=== PATIENT | female | born 1995 | race Caucasian/White ===

== ENCOUNTER 2019-11-02 10:22 | Day surgery (SDC) | payer BC, OTHER, SELFPAY ==
[2019-11-01 12:17] VITALS: BMI 28.6
[2019-11-02] VITALS (9 sets, daily range): BP systolic 117–134; BP diastolic 78–91; PULSE 69–99; RESP 15–20; TEMP 36.1–36.4; O2SAT 94–100
[2019-11-02 11:12] LABS: OR HCG Qualitative Urine Negative (Negative)
[2019-11-02] MEDS: sodium chloride 0.9% 1,000 ML 30 ML IV (11:16)
--- NOTE | 2019-11-02 11:21 | ANES.PREANE2 ---
Pre-Anesthetic Assessment Pre-Anesthetic Assessment: Height/Weight: Height 1.63 m Weight 75.75 kg Preop Diagnosis: cholelithiasis Proposed Procedure: Operation Date: 11/02/19 12:00 Proposed Procedures p Laparoscopic Cholecystectomy/possible open 38958 K80.20(Not Applicable) - Sergey Trejo MD Familial anesthetic complications: PONV upon awakening from anesthesia - will give reglan, famotidine, bicitra before surgery and will place scopolamine Was Beta Tiffanie taken within 24 hours: N/A Last intake: Intake Last Liquid Date 11/01/19 Last Liquid Time 23:30 Last Solid Date 11/01/19 Last Solid Time 11:00 Social: Social History: No alcohol and No tobacco Exam: Pre-Anes Outpt Exam: alert, oriented x 3, clear to auscultation bilaterally and regular rate & rhythm Airway: Cervical ROM: WNL MP: 2 Dentition: Full Anesthetic Plan: ASA status: 1 Anesthesia: General Risk of > 500 ml blood loss (7ml/kg in children): No Meds/Allergies Current Medications: Current Medications Generic Name Dose Route Start Last Admin Trade Name Freq PRN Reason Stop Dose Admin Sodium Chloride 1,000 mls @ 30 ml s/hr 11/02/19 10:45 11/02/19 11:16 Sodium Chloride 0.9% IV 11/03/19 10:44 30 mls/hr .Q24H CARLYLE Administration PFSH Anesthesia PFSH: Medical History Cholelithiasis Surgical History H/O adenoidectomy H/O oral surgery History of tonsillectomy Family History Father Cancer lymphoma Other CAD (coronary artery disease) Denies family history of Diabetes Anesthesia complication Bleeding disorder Social History Smoking and tobacco status: never smoked Alcohol intake: never Household members: spouse Marital status: Current 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
[2019-11-02] MEDS: famotidine 20 mg/2 mL INJ IVP (11:28)
[2019-11-02] MEDS: scopolamine 1.5 Patch 1 PATCH TRANSDERMA (11:29)
[2019-11-02] MEDS: citric acid-sodium citrate 30 mL UDC PO (11:39)
--- NOTE | 2019-11-02 12:08 | W.PM.OPSUD ---
Surgery/Procedure H&P Update DATE OF PROCEDURE: November 02, 2019 DATE H&P PERFORMED: 10/31/19 H&P UPDATE INFORMATION: I have reviewed H&P completed within last 30 days, I have examined patient prior to procedure and No changes to prior documentation PREOP DIAGNOSIS: cholelithiasis PLANNED PROCEDURE: Operation Date: 11/02/19 12:00 Proposed Procedures p Laparoscopic Cholecystectomy/possible open 19758 K80.20(Not Applicable) - Sergey Trejo MD
[2019-11-02] MEDS: ondansetron 2 mg/ML SDV 2 mL 4 MG IVP (14:36)
--- NOTE | 2019-11-02 15:16 | PM.OP ---
Operative Report Date of procedure: November 02, 2019 Pre-op Diagnosis: cholelithiasis Post-op diagnosis: same Procedure Done: Laparoscopic cholecystectomy Pathology: Gallbladder Surgeon: Sergey Trejo Anesthesia: General Estimated blood loss (mL): 5 Condition: stable Disposition: PACU Procedure: The patient was taken to the operating room and was intubated under general anesthesia. After the antibiotic had been administered, the abdomen was prepped and draped in a sterile manner. Using a #15 blade, a 1 centimeter infraumbilical curvilinear incision was made and using an open Vini technique the peritoneal cavity was entered. A 10 millimeter port was placed and 15 millimeters of pneumoperitoneum was created. A 10 millimeter, 30 degrees scope was then introduced. Three 5 millimeter ports were placed in the epigastric, midclavicular and the anterior axillary line two fingerbreadths below the costal margin on the right side under the direct visualization. Ratcheted forceps were introduced into the lateral most port and was used to retract the fundus of the gallbladder cephalad and using forceps the infundibulum of the gallbladder was retracted laterally. Using L-hook cautery the peritoneum overlying the Calot's triangle was opened medially and laterally until the cystic duct and the cystic artery were skeletonized. Dissection was carried along the body of the gallbladder and after ensuring critical view of safety, 4 clips applied on the cystic duct and 3 clips applied on the cystic artery and cut leaving, 3 clips on the remaining portion of the duct and 2 clips on the remaining portion of the artery. The rest of the gallbladder was dissected off the liver using L-hook cautery. There was no bleeding or bile leaking noted from the gallbladder fossa and the clips appeared to be in place. An EndoCatch bag was introduced to remove the gallbladder. All the ports were removed under direct visualization and there was no bleeding noted from the port sites. The fascia of the umbilicus was closed using [id number] 0 Vicryl sutures and the subcutaneous tissue was approximated using 3-0 Vicryl sutures. The skin at all four ports were closed using 4-0 Monocryl and Dermabond. A total of 10 millimeters of 0.5% Marcaine was infiltrated around the port sites. The patient was stable throughout the procedure.
== END 2019-11-02 15:45 | disposition home or self-care (01) ==
PROVIDERS: Anesthesiology; PCP Family Medicine; Visit Provider Surgery
PROC: 0FT44ZZ Resection of Gallbladder, Percutaneous Endoscopic Approach (ICD-10-PCS; CPT 47562; principal; 2019-11-02 12:00)
DX: K80.10 Calculus of gallbladder with chronic cholecystitis without obstruction (principal)
CPT/HCPCS: 47562; 12345; 81025; 84703; 88304; 96365; 96374; J0690; J1100; J1200; J2001; J2405; J2704; J2710; J3010; J3490; J7030

== ENCOUNTER → 2019-12-26 13:47 | Outpatient (BNVA) | payer BC, OTHER, SELFPAY | PROVIDERS: PCP Family Medicine; Visit Provider Obstetrics & Gynecology | DX: Z72.51 High risk heterosexual behavior (principal) | CPT/HCPCS: 81025 ==

== ENCOUNTER → 2020-01-30 13:09 | Outpatient (BNVA) | payer BC, OTHER, SELFPAY | PROVIDERS: PCP Family Medicine; Visit Provider Obstetrics & Gynecology | DX: Z32.01 Encounter for pregnancy test, result positive (principal) | CPT/HCPCS: 81025 ==

== ENCOUNTER → 2020-03-16 09:43 | Outpatient (BNVA) | payer BC, OTHER, SELFPAY | PROVIDERS: PCP Family Medicine; Visit Provider Obstetrics & Gynecology | DX: Z34.90 Encounter for supervision of normal pregnancy, unspecified, unspecified trimester (principal) | CPT/HCPCS: 80053; 80307; 80500; 85027; 86592; 86762; 86803; 86850; 86870; 86900; 86902; 87077; 87086; 87184; 87340 ==

== ENCOUNTER → 2020-03-26 14:43 | Outpatient (BNVA) | payer BC, OTHER, SELFPAY | PROVIDERS: PCP Family Medicine; Visit Provider Obstetrics & Gynecology | DX: Z34.90 Encounter for supervision of normal pregnancy, unspecified, unspecified trimester (principal); R51.9 Headache, unspecified | CPT/HCPCS: 84315; 86850; 86870; 86886; 86900 ==

== ENCOUNTER → 2020-04-18 09:27 | Outpatient (BNVA) | payer BC, OTHER, SELFPAY | PROVIDERS: PCP Family Medicine; Visit Provider Nurse Practitioner Women's Health | DX: O99.891 Other specified diseases and conditions complicating pregnancy (principal); O36.0990 Maternal care for other rhesus isoimmunization, unspecified trimester, not applicable or unspecified; R82.71 Bacteriuria | CPT/HCPCS: 84315; 86850; 86886; 86900 ==

== ENCOUNTER → 2020-05-22 10:22 | Outpatient (BNVA) | payer BC, SELFPAY | PROVIDERS: PCP Family Medicine; Visit Provider Obstetrics & Gynecology | DX: O99.891 Other specified diseases and conditions complicating pregnancy (principal); R82.71 Bacteriuria; O36.0990 Maternal care for other rhesus isoimmunization, unspecified trimester, not applicable or unspecified | CPT/HCPCS: 84315; 86850; 86870; 86886; 87086 ==

== ENCOUNTER → 2020-06-26 10:20 | Outpatient (BNVA) | payer BC, SELFPAY | PROVIDERS: PCP Family Medicine; Visit Provider Obstetrics & Gynecology | DX: O36.0990 Maternal care for other rhesus isoimmunization, unspecified trimester, not applicable or unspecified (principal); O36.0920 Maternal care for other rhesus isoimmunization, second trimester, not applicable or unspecified; O99.891 Other specified diseases and conditions complicating pregnancy; R82.71 Bacteriuria; O09.292 Supervision of pregnancy with other poor reproductive or obstetric history, second trimester; Z3A.25 25 weeks gestation of pregnancy | CPT/HCPCS: 84315; 86850; 86870; 86886 ==

== ENCOUNTER → 2020-07-24 13:48 | Outpatient (BNVA) | payer BC, SELFPAY | PROVIDERS: PCP Family Medicine; Visit Provider Obstetrics & Gynecology | DX: Z34.80 Encounter for supervision of other normal pregnancy, unspecified trimester (principal); R82.71 Bacteriuria | CPT/HCPCS: 82950; 84315; 85027; 86850; 86870; 86886 ==

== ENCOUNTER → 2020-08-07 12:05 | Outpatient (BNVA) | payer BC, SELFPAY | PROVIDERS: PCP Family Medicine; Visit Provider Obstetrics & Gynecology | DX: O99.891 Other specified diseases and conditions complicating pregnancy (principal); R82.71 Bacteriuria; O99.013 Anemia complicating pregnancy, third trimester; O36.0990 Maternal care for other rhesus isoimmunization, unspecified trimester, not applicable or unspecified; O36.8190 Decreased fetal movements, unspecified trimester, not applicable or unspecified | CPT/HCPCS: 84315; 87086 ==

== ENCOUNTER 2020-08-16 02:50 | Outpatient (CLI) | payer BC, SELFPAY ==
[2020-08-16] VITALS (9 sets, daily range): BP systolic 103–121; BP diastolic 71–77; PULSE 103–123; RESP 16–18; TEMP 35.6–36.4; O2SAT 99; BMI 31.6
[2020-08-16 03:59] LABS: Nitrazine Paper, PH Negative
--- NOTE | 2020-08-16 05:14 | PC.NURSE ---
Escorted to ER via wheelchair
--- NOTE | 2020-08-16 05:25 | PC.NURSE ---
After discharge patient escorted to ER via wheelchair. Checked in at ER registration and then taken via wheelchair to ER16.
== END 2020-08-16 05:20 | disposition home or self-care (01) ==
LOC: OPOB 03:00 → OBGYN 03:01
PROVIDERS: PCP Family Medicine; Visit Provider Obstetrics & Gynecology
DX: O21.9 Vomiting of pregnancy, unspecified (principal); Z3A.00 Weeks of gestation of pregnancy not specified; R51.9 Headache, unspecified; H53.9 Unspecified visual disturbance; R10.9 Unspecified abdominal pain
CPT/HCPCS: 59025; 83986; 99211

== ENCOUNTER 2020-08-16 05:30 | Emergency (ER) | payer BC, SELFPAY ==
[2020-08-16 05:36] VITALS: BP 117/85; PULSE 112; RESP 16; TEMP 36.8; O2SAT 98; BMI 31.6
[2020-08-16 05:48] VITALS: BP 113/81; PULSE 138; RESP 14; O2SAT 96
[2020-08-16] MEDS: sodium chloride 0.9% 1,000 ML 999 ML IV ×2 (06:08→06:38)
[2020-08-16 06:15] VITALS: BP 108/85; RESP 15; O2SAT 99
[2020-08-16 06:33] LABS: Anion Gap 12.5 (5-19); Blood Urea Nitrogen 4 mg/dL (6-20); Calcium 8.2 mg/dL (8.5-10.5); Carbon Dioxide 26 mmol/L (22-29); Chloride 101 mmol/L (98-107); Glomerular Filtration Rate 152.9 mL/min (90-130); Glucose 94 mg/dL (65-115); Osmolality Calculated 279 mOsm/kg (285-295); Potassium 3.5 mmol/L (3.5-5.1); Sodium 136 mmol/L (136-145)
--- NOTE | 2020-08-16 06:33 | W.ED.NAVMDI ---
HPI - Nausea/Vomiting/Diarrhea General: Chief complaint: Abdominal Pain Stated complaint: n/v, headache Time Seen by Provider: 08/16/20 05:42 History of Present Illness: HPI Narrative: 33-year-old female presents emergency room from the OB department, she is at 32 weeks. She was seen there at around 2 AM with persistent nausea and vomiting also complained of contractions. Per her report they are monitor her first time checked her cervix is no reported cervical change and she does not have any contractions. She did have a couple episodes where she vomited a few flecks of blood but otherwise has been just vomiting watery and bilious vomit. She has previously had a cholecystectomy. She denies any vaginal discharge she denies any dysuria urgency or frequency. She stated they checked a urine in the OB department however there is no record of a urinalysis in the EMR. She is allergic to Reglan and has not been using anything besides Unisom as an antiemetic at home. She states her nausea is pretty much resolved at this point. MD elicited complaint: nausea and vomiting Pertinent past history: other (Current , at 32 weeks gestation. No complications with previous ) Onset (ago): hour(s) Description of vomiting: watery and bilious Associated nausea: Yes Associated abdominal pain: No Exacerbating factors: none Relieving factors: none Associated symtoms: Reports anorexia and nausea; Denies altered mental status, anxiety, bloating, change in vision, chest pain, cough, diaphoresis, decreased urine output, dizziness, dysuria, epistaxis, fatigue, fecal incontinence, fevers/chills, headache(s), malaise, myalgias, numbness, palpitations, rash, short of breath, syncope, tenesmus, tinnitus or weakness Review of Systems Const: Denies: fatigue, malaise or diaphoresis Eyes: Denies: change in vision ENMT: Denies: tinnitus or epistaxis Card: Denies: chest pain, palpitations or syncope Resp: Denies: dyspnea, productive cough or non-productive cough GI: Reports: nausea; Denies: bloating or fecal incontinence : Denies: flank pain, difficulty voiding, dysuria, urinary frequency or urinary urgency Skin/Breast: Denies: rash or pruritus Neuro: Denies: headache(s) or dizziness Psych: Denies: anxiety PFSH ED PFSH: Medical History (Updated 08/16/20 @ 07:22 by Carroll Sanchez DO) No pertinent past medical history Denies diabetes, asthma, seizures, hypertension, DVT/PE , genital herpes. Denies partner herpes history. PCP: Dr. Thomas Surgical History S/P tonsillectomy and adenoidectomy In 2010 Status post laparoscopic cholecystectomy (11/02/19) 11/02/[address] Trejo at [facility] – [place] Family History Father Lymphoma Family/Other Breast cancer maternal great grandmother, diagnosed in her 70s Bone cancer maternal great grandmother Denies family history of Colon cancer Ovarian cancer Diabetes Heart disease Hyperlipidemia Anesthesia complication Bleeding disorder Hypertension Uterine cancer Thyroid condition Stroke Social History Smoking and tobacco status: never smoked Alcohol intake: never Marital status: Female Reproductive History: Date of last menstrual period: 11/01/19 : 2 Physical Exam Const: COMMON NORMALS: no acute distress EXAM LIMITATIONS: no altered mental status GENERAL APPEARANCE: cooperative and comfortable ORIENTATION/CONSCIOUSNESS: Yes awake, Yes oriented to person, Yes oriented to place and Yes oriented to time HENMT: COMMON NORMALS: normocephalic, atraumatic and hearing grossly normal bilaterally HEAD & SCALP: normocephalic and atraumatic Neck/C-Spine: COMMON NORMALS: no JVD Resp: COMMON NORMALS: normal respiratory effort, No retractions, No use of accessory muscles and clear to auscultation bilaterally AUSCULTATION: clear to auscultation bilaterally Cardio: COMMON NORMALS: no JVD, regular rate, regular rhythm and No murmurs present (Cardio) RATE: regular rate RHYTHM: regular rhythm GI: COMMON NORMALS: Soft to palpation and No hepatosplenomegaly present AUSCULTATION: Yes normoactive bowel sounds PALPATION: Yes Soft to palpation, No Tenderness to palpation present (GI), No Guarding due to palpation present (GI) and Yes No hepatosplenomegaly present OTHER: Gravid abdomen consistent with stated 32 weeks gestational age Extremity: COMMON NORMALS: normal to inspection, capillary refill normal, no clubbing, cyanosis or edema, no calf tenderness and no pedal edema Neuro: SENSORIUM/ORIENTATION: Yes oriented to person, Yes oriented to place and Yes oriented to time Skin: COMMON NORMALS: no rashes or lesions noted GENERAL SKIN EXAM: no rashes or lesions noted Course Vital Signs: Vital signs: Vital Signs Temperature 98.2 F 08/16/20 05:36 Pulse Rate 109 H 08/16/20 07:28 Respiratory Rate 16 08/16/20 06:38 Blood Pressure 108/72 08/16/20 07:28 Pulse Oximetry 98 08/16/20 07:28 MDM - Nausea/Vomiting/Diarrhea MDM Narrative: Medical decision making narrative: Improved with fluids. Encourage clear liquid diet for the rest today then advance as tolerated promethazine given as needed keep next appointment with Dr. Rogel as planned return if has further problems. Lab Data: Labs: Lab Results 08/16/20 08/16/20 Range/Units 06:02 06:36 Sodium 136 (136-145) mmol/L Potassium 3.5 (3.5-5.1) mmol/L Chloride 101 (98-107) mmol/L Carbon Dioxide 26 (22-29) mmol/L Anion Gap 12.5 (5-19) BUN 4 L (6-20) mg/dL Creatinine 0.5 (0.5-0.9) mg/dL GFR Calculation 152.9 H (90-130) mL/min Glucose 94 (65-115) mg/dL Calculated Osmolal ity 279 L (285-295) mOsm/k g Calcium 8.2 L (8.5-10.5) mg/dL Urine Color Yellow (Yellow) Urine Appearance Cloudy (CLEAR) Urine pH 7 (5-7) Ur Specific Gravit y 1.010 (1.005-1.030) Urine Protein Neg (Negative) Urine Glucose (UA) Norm (Normal) Urine Ketones 3+ H (Negative) Urine Blood Neg (Negative) Urine Nitrate Negative (Negative) Urine Bilirubin 1+ H (Negative) Urine Urobilinogen 1 H (Negative) mg/dL Ur Leukocyte Gisselle ase Negative (Negative) Urine RBC None (0-2) /hpf Urine WBC 0-4 H (0-5) /hpf Ur Squamous Epith Cells 10-15 H (0-5) /hpf Amorphous Sediment Not Reportable Urine Bacteria 1+ H (NONE) /hpf Urine Mucus 2+ /hpf Discharge Plan Discharge Patient Disposition: Home Clinical Impression: Hyperemesis gravidarum Condition: Stable Prescriptions: New promethazine 25 mg tablet 25 mg PO QID PRN (Reason: nausea and vomiting) Qty: 20 RF: 0 No Action prenat.vits,harsha,juj-[id number] Tablet 1 tab PO DAILY RF: 0 calcium carbonate [Tums Extra Strength Smoothies] 300 mg (750 mg) tablet,chewable 300 mg PO BID PRN (Reason: Heartburn) RF: 0 docusate sodium [Colace] 100 mg capsule 100 mg PO DAILY RF: 0 ferrous sulfate 325 mg (65 mg iron) tablet,delayed release (DR/EC) 325 mg PO BID Qty: 90 RF: 2 Discharge Orders: Discharge ED (Routine); Ordered 08/16/20 Ordered By: Carroll Sanchez Referrals: Neil Thomas [Primary Care Provider] - Discharge Diet: Clear Liquid Discharge Activity: Increase activity as tolerated Patient Instructions: Opioid Safety Activity Restrictions/Additional Instructions: Clear liquid diet for 24 hours then advance as tolerated. 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
[2020-08-16 06:38] VITALS: RESP 16
[2020-08-16 07:14] LABS: Add Urine Culture? No; Add Urine Microscopic? YES; Bacteria Urine 1+ /hpf; Bilirubin Urine 1+ (Negative); Blood Urine Neg (Negative); Glucose Urine UA Norm (Normal); Ketones Urine 3+ (Negative); Leukocyte Esterase Urine Negative (Negative); Mucus Urine 2+ /hpf; Nitrate Urine Negative (Negative); Protein Urine Neg (Negative); Urine Appearance Cloudy (CLEAR); Urine Color Yellow (Yellow); Urobilinogen Urine 1 mg/dL (Negative); WBC Urine 0-4 /hpf (0-5); pH Urine 7 (5-7)
[2020-08-16 07:28] VITALS: BP 108/72; PULSE 109; O2SAT 98
== END 2020-08-16 07:20 | disposition home or self-care (01) ==
PROVIDERS: Emergency Medicine; Emergency Provider Family Medicine; PCP Family Medicine
DX: O21.0 Mild hyperemesis gravidarum (principal); Z3A.32 32 weeks gestation of pregnancy
CPT/HCPCS: 80048; 81001; 96360; 99283; J7030

== ENCOUNTER → 2020-08-21 09:52 | Outpatient (BNVA) | payer BC, SELFPAY | PROVIDERS: PCP Family Medicine; Visit Provider Obstetrics & Gynecology | DX: O36.0990 Maternal care for other rhesus isoimmunization, unspecified trimester, not applicable or unspecified; O99.891 Other specified diseases and conditions complicating pregnancy; R82.71 Bacteriuria; O99.013 Anemia complicating pregnancy, third trimester | CPT/HCPCS: 84315; 86850; 86870; 86886; 86900 ==

== ENCOUNTER → 2020-09-18 11:37 | Outpatient (BNVA) | payer BC, SELFPAY | PROVIDERS: PCP Family Medicine; Visit Provider Obstetrics & Gynecology | DX: Z34.90 Encounter for supervision of normal pregnancy, unspecified, unspecified trimester (principal) | CPT/HCPCS: 84315; 86850; 86870; 86886; 87081 ==

== ENCOUNTER 2020-10-02 10:21 | Outpatient (CLI) | payer BC, SELFPAY ==
--- NOTE | 2020-10-02 10:40 | US_ITS ---
WS: [id number] ULTRASOUND OB LIMITED TECHNIQUE: Limited ultrasound examination of the fetus. CLINICAL INFORMATION: O42.90 - Premature rupture of membranes, unspecified as t... COMPARISON: September 20, 2020 FINDINGS: Closed cervix measures 3.2 cm Single interuterine gestation. presentation is cephalic Placental location is anterior. Placenta grade: 0. heart rate 144 BPM. URMILA 8.5 cm US/US OB limited [id number] IMPRESSION: 1. Closed cervix measures 3.2 cm 2. presentation is cephalic. Placenta is anterior. 3. URMILA 8.5 cm, greater than the 5th percentile and below the median for gestat ional age.
== END 2020-10-02 10:22 | disposition home or self-care (01) ==
LOC: RAD 10:26
PROVIDERS: PCP Family Medicine; Visit Provider Obstetrics & Gynecology
DX: O42.90 Premature rupture of membranes, unspecified as to length of time between rupture and onset of labor, unspecified weeks of gestation (principal)
CPT/HCPCS: 76815; 84315

== ENCOUNTER 2020-10-03 18:03 | Outpatient (CLI) | payer BC, SELFPAY ==
[2020-10-03] VITALS (11 sets, daily range): BP systolic 102–114; BP diastolic 60–78; PULSE 96–129; RESP 16; TEMP 36–36.2; BMI 32.4
[2020-10-03 18:39] LABS: Actim Prom Negative
== END 2020-10-03 20:43 | disposition home or self-care (01) ==
LOC: OPOB 18:11 → OBGYN 20:38
PROVIDERS: PCP Family Medicine; Visit Provider Obstetrics & Gynecology
DX: O26.899 Other specified pregnancy related conditions, unspecified trimester (principal); Z3A.00 Weeks of gestation of pregnancy not specified; N89.8 Other specified noninflammatory disorders of vagina
CPT/HCPCS: 59025; 84112; 99211

== ENCOUNTER → 2020-10-04 13:46 | Outpatient (BNVA) | payer BC, SELFPAY | PROVIDERS: PCP Family Medicine; Visit Provider Obstetrics & Gynecology | DX: Z34.90 Encounter for supervision of normal pregnancy, unspecified, unspecified trimester (principal); Z20.822 Contact with and (suspected) exposure to COVID-19 | CPT/HCPCS: 87635 ==

== ENCOUNTER 2020-10-07 10:10 | Inpatient (IN) | payer BC, SELFPAY ==
[2020-10-07] VITALS (33 sets, daily range): BP systolic 107–152; BP diastolic 55–94; PULSE 98–136; RESP 16–20; TEMP 36.1–36.9; O2SAT 98; BMI 28.3
[2020-10-07] MEDS: dextrose 5%-lactated ringers 1,000 ML 125 ML IV (10:44)
[2020-10-07 11:04] LABS: Basophils % 0.4 %; Eosinophils % 0.4 %; Hematocrit 39.5 % (37.0-47.0); Hemoglobin 12.3 g/dL (11.5-15.3); Lymphocytes % 17.6 %; Mean Corpuscular HGB Conc 31.1 g/dL (30.0-36.0); Mean Corpuscular Hemoglobin 27.3 pg (28.0-34.0); Mean Corpuscular Volume 87.8 fL (81-99); Mean Platelet Volume 12.5 fL (7.4-10.4); Monocytes # 0.8 10^3/uL (0.2-0.9); Monocytes % 7.4 %; Neutrophils # 8.19 10^3/uL (1.8-7.7); Neutrophils % 73.6 %; Nucleated Red Blood Cells % 0 %; Platelet Count 213 10^3/cmm (130-400); Red Cell Distribution Width 14.7 % (12.1-15.1); White Blood Count 11.1 10^3/uL (4.0-10.0)
[2020-10-07] MEDS: oxytocin 30 UNIT/500 ML BAG 600 UNIT IV (14:45)
[2020-10-07] MEDS: miSOPROStol 200 mcg Tablet 800 MCG PR (14:50)
--- NOTE | 2020-10-07 15:15 | PM.DELIVERY ---
Delivery Note: Date of delivery: October 07, 2020 Pre-delivery diagnoses: iup at 40 2/7 with spontaneous labor. 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 She desired no pain management. She had AROM of meconium stained fluid and had normal progression of labor Delivery: The patient had complete cervical dilation and began to push. The head delivered in the SYED position over an intact perineum under no anesthesia. The nose and mouth were bulb suctioned. A single nuchal cord was reduced at the perineum. The shoulders and body delivered atraumatically. The baby was placed onto the mother's abdomen. The cord was clamped and cut. Cord blood was obtained. The placenta delivered spontaneously. It was inspected and found to be intact. Inspection of the perineum revealed a first-degree right vaginal laceration which was hemostatic. There was profuse bleeding from a midline periurethral/periclitoral tear. A red rubber catheter was placed into the urethra and the laceration reapproximated with 3-0 Vicryl in a running, locked fashion. Because of the profuse bleeding, there was concern for a urethral tear and so the red rubber catheter was replaced with a Balderas catheter. I plan to leave the Balderas catheter placed, to determine if there is any bleeding from the urethra. This would indicate a tear in the urethra. If there is blood in the urine, the catheter will remain in place until there is no further bleeding. The nurses have been instructed that if there is no bleeding, they may remove the catheter in 2 hours. Currently there is no bleeding into the catheter. Estimated blood loss 150. Apgars on baby were 8 at 1 minute and 9 at 5 minutes. Weight of baby is 8 pounds 1 ounce. Mother and baby were stable post delivery. Post-Delivery Status: Mother and baby stable. Mother with balderas catheter draining clear urine with no evidence of blood. 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
[2020-10-07] MEDS: benzocaine-menthol 78 gm Canister 1 SPRAY TOPICAL (16:23)
[2020-10-07] MEDS: acetaminophen 325 mg Tablet 650 MG PO (17:03)
[2020-10-07] MEDS: docusate sodium 100 mg Capsule PO (17:03)
[2020-10-07] MEDS: ibuprofen 800 mg tablet PO (20:27)
[2020-10-08 01:41] VITALS: BP 107/72; PULSE 87; RESP 18; O2SAT 98
[2020-10-08 04:02] LABS: Hematocrit 31.4 % (37.0-47.0); Mean Corpuscular HGB Conc 31.8 g/dL (30.0-36.0); Mean Corpuscular Hemoglobin 27.5 pg (28.0-34.0); Mean Corpuscular Volume 86.5 fL (81-99); Mean Platelet Volume 12.1 fL (7.4-10.4); Platelet Count 183 10^3/cmm (130-400); Red Blood Count 3.63 10^6/uL (4.1-5.3); Red Cell Distribution Width 14.6 % (12.1-15.1); White Blood Count 13.7 10^3/uL (4.0-10.0)
[2020-10-08 05:15] VITALS: BP 106/70; PULSE 80; RESP 15; TEMP 36.7; O2SAT 98
--- NOTE | 2020-10-08 08:21 | P.DS_ITS ---
Discharge Providers Date of Admission: 10/07/20 10:10 Date of Discharge: October 08, 2020 Attending Provider at Admission: Sujey Quick MD Attending Provider at Discharge: Sujey Quick MD Primary Care Provider: Neil Thomas Diagnoses at Discharge Discharge Diagnosis (1) Anemia affecting in third trimester: Status: Acute (2) Antibody E isoimmunization affecting , antepartum: Status: Acute (3) Supervision of normal : Status: Acute (4) Asymptomatic bacteriuria antepartum: Status: Acute Reason for Visit Reason for Visit: contractions Hospital Course Hospital Course: The patient was admitted in active labor. She had spontaneous delivery of a term . She did well and was ready for discharge on day #2 Physical Exam Narrative: EXAM NARRATIVE: The patient is doing well this am. She doesn't have any complaints today Resp: COMMON NORMALS: normal respiratory effort EFFORT & INSPECTION: Yes able to speak in complete sentences GI: COMMON NORMALS: Soft to palpation and non-tender PALPATION: Yes Soft to palpation Discharge Data Data Completed and Pending: Labs from last 24 hours 10/08/20 10/07/20 03:25 10:27 WBC 13.7 H 11.1 H RBC 3.63 L 4.50 Hgb 10.0 L 12.3 Hct 31.4 L 39.5 MCV 86.5 87.8 MCH 27.5 L 27.3 L MCHC 31.8 31.1 RDW 14.6 14.7 Plt Count 183 213 MPV 12.1 H 12.5 H Neut % (Auto) 73.6 Lymph % (Auto) 17.6 [place] % (Auto) 7.4 Eos % (Auto) 0.4 Baso % (Auto) 0.4 Neut # (Auto) 8.19 H Lymph # (Auto) 2.0 [place] # (Auto) 0.8 Eos # (Auto) 0.0 Baso # (Auto) 0.0 Nucleated RBC % (a uto) 0 Nucleated RBCs # 0.0 Vitals: Last Vital Signs Temp 98.0 F 10/08/20 05:15 Pulse 80 10/08/20 05:15 Resp 15 10/08/20 05:15 BP 106/70 10/08/20 05:15 Pulse Ox 98 10/08/20 05:15 Discharge Plan Discharge Patient Disposition: Home Condition: Stable Prescriptions: Continued prenat.vits,harsha,[id number] Tablet 1 tab PO DAILY RF: 0 calcium carbonate [Tums Extra Strength Smoothies] 300 mg (750 mg) tablet,chewable 300 mg PO BID PRN (Reason: Heartburn) RF: 0 docusate sodium [Colace] 100 mg capsule 100 mg PO DAILY RF: 0 ferrous sulfate 325 mg (65 mg iron) tablet,delayed release (DR/EC) 325 mg PO BID Qty: 90 RF: 2 Discharge Orders: Discharge Order (Routine); Ordered 10/08/20 Ordered By: Sujey Quick Patient Instructions: Opioid Safety Discharge Attestations 2 Time Spent in Discharge Care*: less than 30 min Quality Metrics Clinical Quality Measures During this hospital stay, did patient experience: None Coding Level of Care Code Acute g [facility] note Exam Expanded Problem Focused Diagnoses Anemia affecting in third trimester O99.013 Antibody E isoimmunization affecting , antepartum O36.0990 Supervision of normal Z34.90 Asymptomatic bacteriuria antepartum O99.891; R82.71
[2020-10-08] MEDS: ibuprofen 800 mg tablet PO ×2 (09:26→15:18)
[2020-10-08] MEDS: prenatal vitamin Capsule 1 CAP PO (09:26)
[2020-10-08] MEDS: docusate sodium 100 mg Capsule PO (09:27)
[2020-10-08 17:29] VITALS: BP 103/70; PULSE 80; RESP 17; TEMP 36.7; O2SAT 98
[2020-10-08 18:05] VITALS: BP 110/69; PULSE 100; RESP 18; TEMP 36.8; O2SAT 98
[2020-10-08 18:10] VITALS: BP 110/69; PULSE 100; RESP 18; TEMP 36.8; O2SAT 98
== END 2020-10-08 18:15 | disposition home or self-care (01) | DRG 768 ==
LOC: OPOB 10:11 → OBGYN 10:11
PROVIDERS: Admitting Provider Obstetrics & Gynecology; PCP Family Medicine; Visit Provider Obstetrics & Gynecology
DX: O99.02 Anemia complicating childbirth (principal); Z37.0 Single live birth; O36.0930 Maternal care for other rhesus isoimmunization, third trimester, not applicable or unspecified; D50.9 Iron deficiency anemia, unspecified; O77.0 Labor and delivery complicated by meconium in amniotic fluid; O69.2XX0 Labor and delivery complicated by other cord entanglement, with compression, not applicable or unspecified; O70.0 First degree perineal laceration during delivery; O71.82 Other specified trauma to perineum and vulva; Z3A.40 40 weeks gestation of pregnancy
CPT/HCPCS: 36415; 59025; 59409; 85025; 85027; 99211

== ENCOUNTER → 2020-11-19 10:45 | Outpatient (BNVA) | payer BC, SELFPAY | PROVIDERS: PCP Family Medicine; Visit Provider Obstetrics & Gynecology | DX: Z12.4 Encounter for screening for malignant neoplasm of cervix (principal); R45.86 Emotional lability | CPT/HCPCS: 88175 ==

== ENCOUNTER 2025-02-28 10:51 | Outpatient (CLI) | payer BC, SELFPAY ==
--- NOTE | 2025-02-28 10:56 | US_ITS ---
WS: [id number] ULTRASOUND BILATERAL BREAST, limited HISTORY: BILATERAL BREAST LUMP COMPARISON: 04/25/2015 TECHNIQUE: 2-D and Doppler. RIGHT: Ultrasound performed in the area of concern as directed by the patient which includes 7 and 8:00 axis. There is no mass identified. No distortion. Dense fibroglandular tissue. LEFT: Ultrasound at 2:00, 2 cm from the nipple is normal. US/US breast BI limited* [id number] IMPRESSION: BI-RADS: 1- Negative FOLLOW-UP: See Report No abnormality in either breast at the area of concern indicated by the patient .
== END 2025-02-28 10:52 | disposition home or self-care (01) ==
LOC: RAD 10:52
PROVIDERS: Visit Provider Nurse Practitioner Family
DX: N63.10 Unspecified lump in the right breast, unspecified quadrant (principal); N63.20 Unspecified lump in the left breast, unspecified quadrant; R92.321 Mammographic fibroglandular density, right breast
CPT/HCPCS: 76642